=== PATIENT | female | born 1960 | race Caucasian/White ===

== ENCOUNTER 2016-10-03 09:39 | Observation (INO) | payer OTHER ==
[2016-10-03 10:43] LABS: ABSOLUTE BASOPHILS # (AUTO) 0.1 10^3/uL (0.0-0.2); ABSOLUTE EOSINOPHILS # (AUTO) 0.1 10^3/uL (0.0-0.6); ABSOLUTE LYMPHOCYTES (AUTO) 1.6 10^3/uL (0.5-4.7); ABSOLUTE MONOCYTES (AUTO) 0.4 10^3/uL (0.1-1.4); ABSOLUTE NEUT (AUTO) 3.9 10^3/uL (1.7-8.2); EOSINOPHILS % (AUTO) 1.4 % (0-6); HEMATOCRIT 46.5 % (36.0-47.0); HGB HCT DIFFERENCE 1.5; LYMPHOCYTES % (AUTO) 26.2 % (13-45); MEAN CORPUSCULAR HEMOGLOBIN 32.5 pg (27.0-33.4); MEAN CORPUSCULAR HGB CONC 34.5 g/dL (32.0-36.0); MEAN CORPUSCULAR VOLUME 94 fl (80-97); MONOCYTES % (AUTO) 6.5 % (3-13); PROTHROMBIN TIME 12.6 SEC (11.4-15.4); RED BLOOD COUNT 4.93 10^6/uL (3.72-5.28); RED CELL DISTRIBUTION WIDTH 12.7 % (11.5-14.0); SEGMENTED NEUTROPHILS % (AUTO) 64.9 % (42-78)
[2016-10-03 10:50] LABS: ALANINE AMINOTRANSFERASE 15 U/L (9-52); ALBUMIN 4.5 g/dL (3.5-5.0); ALKALINE PHOSPHATASE 66 U/L (38-126); ANION GAP 11 (5-19); ASPARTATE AMINO TRANSFERASE 22 U/L (14-36); BILIRUBIN,TOTAL 0.5 mg/dL (0.2-1.3); BLOOD UREA NITROGEN 11 mg/dL (7-20); CALCIUM 9.6 mg/dL (8.4-10.2); CARBON DIOXIDE 24 mmol/L (22-30); CHLORIDE 104 mmol/L (98-107); CREATINE KINASE 54 U/L (30-135); CREATININE RESULT 0.88 mg/dL (0.52-1.25); GLUCOSE 89 mg/dL (75-110); POTASSIUM 4.4 mmol/L (3.6-5.0); SODIUM 139.1 mmol/L (137-145)
[2016-10-03 11:04] LABS: CREATINE KINASE MB < 0.22 ng/mL (<4.55); TROPONIN I < 0.012 ng/mL
--- NOTE | 2016-10-03 11:06 | ER Document Report ---
ED Cardiac - General Chief Complaint: Chest Pressure Stated Complaint: CHEST PRESSURE, WEAKNAESS Time seen by provider: 11:05 Mode of Arrival: Ambulatory Information source: Patient Notes: The patient is a 56-year-old female with a history of breast cancer status post bilateral mastectomy (4 years ago) who presents to the emergency room with chest heaviness and shortness of breath. Patient states that she started to feel bad 2 days ago symptoms got worse yesterday. Patient denies any fever, chills, nausea vomiting. TRAVEL OUTSIDE OF THE [place] IN LAST 30 DAYS: No - HPI Patient complains to provider of: Chest tightness, Shortness of breath Use of: denies: Alcohol, Amphetamines, Bath salts, Caffeine, Cocaine, Decongestants, Other Was the onset of pain: Gradual Is the pain a: New problem Chest pain location: Substernal Quality of pain: Dull, Heaviness Chest pain radiation location: denies: Left jaw, Left arm, Left shoulder, Right jaw, Right arm, Right shoulder, Back, Neck, None Severity now: None Severity at worst: Mild Pain level currently: Denies Cardiac risk factors: Hypertension, Smoker, + Family history Positive cardiac history: No Associated symptoms: Shortness of breath Exacerbated by: Denies Relieved by: Nothing Similar symptoms previously: Yes Recently seen / treated by doctor: No - Related Data Allergies/Adverse Reactions: No Known Allergies Allergy (Verified 10/03/16 09:52) Home Medications: Current Home Medications Esomeprazole Magnesium [Nexium] 1 cap PO QAM 10/03/16 [History] Past Medical History - General Information source: Patient - Social History Smoking Status: Current Some Day Smoker Cigarette use (# per day): Yes - half pack per day Chew tobacco use (# tins/day): Yes Frequency of alcohol use: Occasional Drug Abuse: None Lives with: Family Family History: Reviewed & Not Pertinent Patient has suicidal ideation: No Patient has homicidal ideation: No - Past Medical History Cardiac Medical History: Denies: Hx Coronary Artery Disease Pulmonary Medical History: Reports: Hx COPD Neurological Medical History: Reports: None Endocrine Medical History: Reports: None Renal/ Medical History: Reports: None. Denies: Hx Peritoneal Dialysis Malignancy Medical History: Reports: Hx Breast Cancer - Successful surgery GI Medical History: Reports: Hx Gastroesophageal Reflux Disease Musculoskeltal Medical History: Reports None Skin Medical History: Reports None Psychiatric Medical History: Reports: Hx Post Traumatic Stress Disorder Past Surgical History: Reports: Hx Breast Surgery, Hx Cholecystectomy, Hx Gynecologic Surgery, Hx Hysterectomy, Hx Mastectomy - Bilateral, Hx Orthopedic Surgery, Hx Tonsillectomy - Immunizations Hx Diphtheria, Pertussis, Tetanus Vaccination: Yes Review of Systems - Review of Systems Constitutional: denies: Chills, Fever EENT: No symptoms reported Cardiovascular: See HPI Respiratory: See HPI Gastrointestinal: No symptoms reported Genitourinary: No symptoms reported Female Genitourinary: No symptoms reported Musculoskeletal: No symptoms reported Skin: No symptoms reported Hematologic/Lymphatic: No symptoms reported Neurological/Psychological: No symptoms reported Physical Exam - Vital signs Vitals: Temp Pulse Resp BP Pulse Ox 98.0 F 93 16 119/70 95 10/03/16 09:51 10/03/16 09:51 10/03/16 09:51 10/03/16 09:51 10/03/16 09:51 Notes: Physical exam: GENERAL: 56-year-old female, alert and oriented 3, no acute distress. HEAD: Atraumatic, normocephalic. EYES: Pupils equal round and reactive to light, extraocular movements intact, sclera anicteric, conjunctiva are normal. ENT: TMs normal, nares patent, oropharynx clear without exudates. Moist mucous membranes. NECK: Normal range of motion, supple without lymphadenopathy or JVD. LUNGS: Breath sounds clear to auscultation bilaterally and equal. No wheezes rales or rhonchi. HEART: Regular rate and rhythm without murmurs, rubs or gallops. ABDOMEN: Soft, normoactive bowel sounds. No tenderness to palpation. No guarding, no rebound. No masses appreciated. EXTREMITIES: Normal range of motion, no pitting or edema. No clubbing or cyanosis. NEUROLOGICAL: Cranial nerves II through XII grossly intact. Normal speech, normal gait. PSYCH: Normal mood, normal affect. SKIN: Warm, Dry, normal turgor, no rashes or lesions noted. Course - Vital Signs Vital signs: Temp Pulse Resp BP Pulse Ox 98.1 F 82 17 106/65 92 10/03/16 12:00 10/03/16 19:00 10/03/16 19:00 10/03/16 16:00 10/03/16 17:01 - Laboratory Result Diagrams: 10/03/16 10:18 10/03/16 10:18 Laboratory results interpreted by me: 10/03/16 10:18 Hgb 16.0 H - Diagnostic Test Radiology reviewed: Image reviewed, Reports reviewed - Chest x-ray shows no infiltrates. CTA shows no evidence of pulmonary emboli Discharge - Discharge Clinical Impression: copd Chest pain Qualifiers: Chest pain type: precordial pain Qualified Code(s): R07.2 - Precordial pain Condition: Stable Disposition: ADMITTED OBSERVATION Admitting Provider: Hospitalist - Dr Marcos Unit Admitted: Telemetry
[2016-10-03] MEDS ORDERED: IPRATROPIUM/ALBUTEROL 0.5-2.5 MG/3 ML AMPUL NEB ONE ×2 (12:08→14:29)
[2016-10-03] MEDS ORDERED: REGADENOSON INJ 0.4 MG/5 ML DISP.SYRIN IV ONE (12:29)
--- NOTE | 2016-10-03 12:55 | EKG REPORT ---
SEVERITY:- BORDERLINE ECG - SINUS TACHYCARDIA RIGHT AXIS DEVIATION CONSIDER ANTERIOR INFARCT : Confirmed by: William Cook 03-Oct-2016 12:55:41
[2016-10-03] MEDS ORDERED: MORPHINE SULFATE 10 MG/ML INJ IV ONE (14:25)
[2016-10-03] MEDS ORDERED: OXYCODONE-ACETAMINOPHEN 5-325 MG TABLET PO PRN (14:59)
[2016-10-03] MEDS ORDERED: ACETAMINOPHEN 325 MG TABLET PO PRN (14:59)
[2016-10-03] MEDS ORDERED: IPRATROPIUM/ALBUTEROL 0.5-2.5 MG/3 ML AMPUL NEB PRN (14:59)
[2016-10-03] MEDS ORDERED: ONDANSETRON HCL INJ/PF 4 MG/2 ML SDV IV PRN (14:59)
--- NOTE | 2016-10-03 15:15 | PDOC H&P ---
History of Present Illness Admission Date/PCP: 10/03/16 14:50 Patient complains of: Chest pressure History of Present Illness: EPHRAIM SAHNKAR is a 56 year old female presents to the emergency department with progressive complaint of chest pressure that started on Sunday as a "twinge" in the center of her chest, Sunday became constant and by yesterday became much more intense, each episode associated with shortness of breath and anxiety. None of this is relieved with sublingual nitroglycerin. She denies cough, phlegm, fever, chills, sore throat, reflux or food avoidance, heartburn, wheezing, orthopnea, PND, weight gain or loss. She had a similar episode in April 2016 but progressed to qi chest pain at that time. She was admitted overnight ruled out for acute cardiac ischemia and underwent a Cardiolite stress test that was interpreted as negative for acute ischemia. Evaluation in the emergency department is relatively unrevealing, her initial creatinines and was negative, EKG interpreted as normal without evidence of acute ischemia but due to her presentation we were asked to admit for chest pain evaluation. Past Medical History Cardiac Medical History: Denies: Coronary Artery Disease Pulmonary Medical History: Reports: Chronic Obstructive Pulmonary Disease (COPD) Malignancy Medical History: Reports: Breast Cancer - Successful surgery Psychiatric Medical History: Reports: Post Traumatic Stress Disorder Past Surgical History Past Surgical History: Reports: Cholecystectomy, Hysterectomy, Mastectomy - Bilateral, Orthopedic Surgery, Tonsillectomy Social History Smoking Status: Current Some Day Smoker Frequency of Alcohol Use: Rare Hx Recreational Drug Use: No Drugs: None - Advance Directive Resuscitation Status: Full Code Family History Family History: CAD - Interim brother at age 55, Malignancy - Multiple malignancies including uterine cancer, colon cancer, lung cancer, pancreatic cancer in first-degree relatives Parental Family History Reviewed: Yes Children Family History Reviewed: Yes Sibling(s) Family History Reviewed.: Yes Medication/Allergy Home Medications: Anastrozole 1 tab PO DAILY 05/01/16 Citalopram Hydrobromide [Citalopram HBr] 10 mg PO DAILY 05/01/16 Trazodone HCl 150 mg PO HSP PRN 05/01/16 Esomeprazole Magnesium [Nexium] 1 cap PO QAM 10/03/16 Allergies/Adverse Reactions: No Known Allergies Allergy (Verified 10/03/16 09:52) Review of Systems Constitutional: ABSENT: chills, fever(s), headache(s), weight gain, weight loss Eyes: ABSENT: visual disturbances Ears: ABSENT: hearing changes Cardiovascular: PRESENT: chest pain. ABSENT: dyspnea on exertion, edema, orthropnea, palpitations Respiratory: PRESENT: dyspnea. ABSENT: cough, hemoptysis Gastrointestinal: ABSENT: abdominal pain, constipation, diarrhea, hematemesis, hematochezia, nausea, vomiting Genitourinary: ABSENT: dysuria, hematuria Musculoskeletal: ABSENT: joint swelling Integumentary: ABSENT: rash, wounds Neurological: ABSENT: abnormal gait, abnormal speech, confusion, dizziness, focal weakness, syncope Psychiatric: ABSENT: anxiety, depression, homidical ideation, suicidal ideation Endocrine: ABSENT: cold intolerance, heat intolerance, polydipsia, polyuria Hematologic/Lymphatic: ABSENT: easy bleeding, easy bruising Physical Exam Vital Signs: Temp Pulse Resp BP Pulse Ox 98.1 F 93 20 108/60 93 10/03/16 12:00 10/03/16 09:51 10/03/16 13:01 10/03/16 13:00 10/03/16 13:01 PHYSICAL EXAM GENERAL: NAD; well developed, well nourished; no obese; alert and oriented to person, place, time, situation HEENT: normocephalic, atraumatic; EOMI, PERRLA, no conjunctival injection, no scleral icterus; oral mucosa moist, neck supple, no LAD, normal ROM RESPIRATORY: no accessory muscle use, no increased WOB, good air entry bilaterally; no wheezes, rales, rhonchi; no inspiratory crackles but bilateral coarse left greater than right CARDIO: no JVD; RRR; no systolic murmur; no tachycardia; no hepatojugular reflux VASCULAR: no carotid bruit; no abdominal bruit; no pallor; 2+ radial, DP pulse ; normal capillary refill GI: soft; nondistended; normal bowel sounds; no hepato spleno megaly; no rebound, rigidity, guarding; nontender NEURO: normal patella reflexes; normal sensation; normal motor function; no dysarthria MSK: 5/5 strength; normal ROM hips; ambulatory without assistance; no tenderness EXTREMITIES: no calf tender; no palpable cords in calf; no clubbing, cyanosis , pedal edema; PSYCH: normal affect, normal mood SKIN: warm; moist; no petechiae; no telengectasias; no jaundice; no rash Results Laboratory Results: Labs reviewed, CBC unremarkable including differential, INR normal, complete metabolic panel normal, cardiac enzymes normal EKG Comments: EKG shows a sinus rhythm borderline tachycardia with a ventricular rate of 98, corrected QT interval of 445, axis of 104 Impressions: Chest X-Ray 10/03/16 00:00 IMPRESSION: Obstructive lung disease. No acute findings Chest/Abdomen CTA 10/03/16 11:06 IMPRESSION: 1. No PE. 2. COPD. Status: Imported from PACS - Reports reviewed Assessment & Plan - Diagnosis (1) Atypical chest pain Is this a current diagnosis for this admission?: YesPlan: Admit the patient to a monitored bed. Trend serial cardiac enzymes through the night. Review the old record indicates she had a normal Cardiolite stress test in April 2016, therefore it is unlikely she has developed acute coronary blockage in the interval 6 months. We'll check echocardiogram given that her presentation and symptoms and given the extent of the COPD she was unaware of, to evaluate for pulmonary hypertension, right ventricular strain, etc. (2) COPD (chronic obstructive pulmonary disease) Qualifiers: COPD type: emphysema Emphysema type: other Qualified Code(s): J43.8 - Other emphysema Is this a current diagnosis for this admission?: YesPlan: CT scan shows fairly extensive bullous emphysema and air trapping far in excess of what the patient is aware of. She was counseled regarding tobacco cessation. She'll be given nebulizers, supplemental O2 as needed and further treatment as her clinical condition warrants. Currently there is no evidence of any bronchospasm on exam. (3) Breast cancer Qualifiers: Laterality: unspecified laterality Is this a current diagnosis for this admission?: NoPlan: Currently being managed as an outpatient. (4) Post traumatic stress disorder (PTSD) Is this a current diagnosis for this admission?: YesPlan: There may be an element of anxiety contributing to many of her symptoms. Continue her usual home regimen and monitor. (5) Tobacco dependence Is this a current diagnosis for this admission?: YesPlan: Tobacco cessation counseling. - Time Time Spent: 50 to 70 Minutes Medications reviewed and adjusted accordingly: Yes Anticipated discharge: Home Within: within 24 hours
--- NOTE | 2016-10-03 18:52 | XCELERA REPORT ---
[address] [address] Transthoracic Echocardiogram Report Name: EPHRAIM SHANKAR Age: 56 yrs Gender: Female : 1960 Patient Status: Inpatient Patient Location: \S\06\S\A Study Date: 10/03/2016 03:22 PM Height: 65 in Weight: 141 lb BSA: 1.7 m2 Procedure: A two-dimensional transthoracic echocardiogram with color flow and Doppler was performed. Study Quality: Technically suboptimal. Reason For Study: DYSPNEA / CHEST PRESSURE History: DYSPNEA / CHEST PRESSURE. Ordering Physician: BRIGHT JOLLEY Performed By: Lela Rendon Interpretation Summary The left ventricle is normal in size. There is normal left ventricular wall thickness. Left ventricular systolic function is normal. LV EF is 65% Doppler measurements suggest normal left ventricular diastolic function The left ventricular wall motion is normal. There is no thrombus. The right ventricle is grossly normal size. There is no evidence of mitral valve prolapse. There is no mitral valve stenosis. There is no aortic valve stenosis There is no LVOT obstruction. No aortic regurgitation is present. There is no tricuspid stenosis. No tricuspid regurgitation. unable to calculate RVSP due to insfficient TR jet. There is no pericardial effusion. MMode/2D Measurements \T\ Calculations RVDd: 2.5 cm LVIDd: 4.0 cm FS: 37.9 % Ao root diam: 2.7 cm IVSd: 0.71 cm LVIDs: 2.5 cm EDV(Teich): 68.9 ml LVPWd: 0.70 cmESV(Teich): 21.6 ml Ao root area: 5.6 cm2 EF(Teich): 68.6 % LA dimension: 2.6 cm LVOT diam: 1.8 cm LVOT area: 2.6 cm2 Doppler Measurements \T\ Calculations MV E max beata: MV P1/2t max beata: Ao V2 max: LV V1 max P.6 cm/sec 95.6 cm/sec 143.9 cm/sec 3.4 mmHg MV A max beata: MV P1/2t: 58.0 msec Ao max PG: LV V1 max: 90.2 cm/sec MVA(P1/2t): 3.8 cm2 8.3 mmHg 92.5 cm/sec MV E/A: 1.1 MV dec slope: LOLLY(V,D): 1.7 cm2 483.0 cm/sec2 PA V2 max: 77.5 cm/sec PA max P.4 mmHg Left Ventricle The left ventricle is normal in size. There is normal left ventricular wall thickness. Left ventricular systolic function is normal. LV EF is 65%. Doppler measurements suggest normal left ventricular diastolic function. The left ventricular wall motion is normal. There is no thrombus. There is no ventricular septal defect visualized. Right Ventricle The right ventricle is grossly normal size. Atria The right atrium is normal. The left atrial size is normal. The interatrial septum is intact with no evidence for an atrial septal defect. Mitral Valve There is no evidence of mitral valve prolapse. There is no vegetation seen on the mitral valve. There is no mitral valve stenosis. There is no mitral regurgitation noted. Aortic Valve There is no aortic valvular vegetation. There is no aortic valve stenosis. There is no LVOT obstruction. No aortic regurgitation is present. Tricuspid Valve There is no tricuspid stenosis. No tricuspid regurgitation. unable to calculate RVSP due to insfficient TR jet. Pulmonic Valve The pulmonic valve is not well visualized. Great Vessels The aortic root is not well visualized but is probably normal size. Effusions There is no pericardial effusion. : BRIGHT JOLLEY > Jeanette To
[2016-10-03] MEDS: FAMOTIDINE 20 MG TABLET PO SCH (22:23)
[2016-10-03] MEDS: TRAZODONE HCL 50 MG TABLET PO PRN (22:32)
[2016-10-04 04:44] LABS: HEMATOCRIT 43.4 % (36.0-47.0); HEMOGLOBIN 14.5 g/dL (12.0-15.5); HGB HCT DIFFERENCE 0.1; MEAN CORPUSCULAR HEMOGLOBIN 31.9 pg (27.0-33.4); MEAN CORPUSCULAR HGB CONC 33.4 g/dL (32.0-36.0); MEAN CORPUSCULAR VOLUME 95 fl (80-97); RED BLOOD COUNT 4.55 10^6/uL (3.72-5.28); RED CELL DISTRIBUTION WIDTH 12.8 % (11.5-14.0); WHITE BLOOD COUNT 6.7 10^3/uL (4.0-10.5)
[2016-10-04 05:01] LABS: ANION GAP 11 (5-19); BLOOD UREA NITROGEN 10 mg/dL (7-20); CALCIUM 9.4 mg/dL (8.4-10.2); CARBON DIOXIDE 22 mmol/L (22-30); CHLORIDE 107 mmol/L (98-107); CHOLESTEROL 169.13 mg/dL (0-200); CREATININE RESULT 0.81 mg/dL (0.52-1.25); Direct HDL 73 mg/dL (>40); GLUCOSE 92 mg/dL (75-110); POTASSIUM 4.2 mmol/L (3.6-5.0); SODIUM 140.2 mmol/L (137-145); TRIGLYCERIDES 94 mg/dL (<150)
[2016-10-04 05:12] LABS: DIRECT LDL 73 mg/dL (<100)
[2016-10-04] MEDS: ENOXAPARIN SODIUM INJ 40 MG/0.4 ML DISP.SYRIN SUBCUT SCH (07:19)
[2016-10-04] MEDS ORDERED: ENOXAPARIN SODIUM INJ 40 MG/0.4 ML DISP.SYRIN SUBCUT SCH (08:00)
[2016-10-04] MEDS: ANASTROZOLE 1 MG TABLET PO SCH (09:07)
[2016-10-04] MEDS: FAMOTIDINE 20 MG TABLET PO SCH ×2 (09:07→21:14)
[2016-10-04] MEDS ORDERED: MAG HYDROX/AL HYDROX/SIMETH SUSP 30 ML UDCUP ONE (12:04)
[2016-10-04] MEDS ORDERED: MORPHINE SULFATE 10 MG/ML INJ ONE (12:09)
[2016-10-04] MEDS ORDERED: MAG HYDROX/AL HYDROX/SIMETH SUSP 30 ML UDCUP PO ONE (12:30)
[2016-10-04] MEDS ORDERED: MORPHINE SULFATE 10 MG/ML INJ IV ONE (13:00)
--- NOTE | 2016-10-04 14:05 | PDOC PROGRESS REPORT ---
Subjective Progress Note for:: 10/04/16 Subjective:: Reason for visit: f/u chest pain Hospital course: EPHRAIM SHANKAR is a 56 year old female presents to the emergency department with progressive complaint of chest pressure that started on Sunday as a "twinge" in the center of her chest, Sunday became constant and by yesterday became much more intense, each episode associated with shortness of breath and anxiety. None of this is relieved with sublingual nitroglycerin. She denies cough, phlegm, fever, chills, sore throat, reflux or food avoidance, heartburn, wheezing, orthopnea, PND, weight gain or loss. She had a similar episode in April 2016 but progressed to qi chest pain at that time. She was admitted overnight ruled out for acute cardiac ischemia and underwent a Cardiolite stress test that was interpreted as negative for acute ischemia. Evaluation in the emergency department is relatively unrevealing, her initial creatinines and was negative, EKG interpreted as normal without evidence of acute ischemia but due to her presentation we were asked to admit for chest pain evaluation. she once again ruled out for acute ischemia with negative enzymes and no changes on EKG. her echo is also completely normal with good EF 65% and no wall motion abnormalities and no significant valvular abnormalities. unfortunately she did have another episode last night that awakended her from sleep with sharp, stabbing epigastric and lower left chest pain radiating into her left chest with asct'd SOA and dizziness, lasting for about 10 minutes and then spontaneously resolved. no alleviating or exacerbating factors and in fact states the chest pressure that brought her to the hospital makedly improved after this pain relented. ROS: as above, total 10 systems reviewed and otherwise negative. Physical Exam Vital Signs: Temp Pulse Resp BP Pulse Ox 97.8 F 65 20 96/56 L 96 10/04/16 11:33 10/04/16 11:33 10/04/16 11:33 10/04/16 11:33 10/04/16 11:33 Intake & Output 10/03/16 10/04/16 10/05/16 06:59 06:59 06:59 Intake Total 350 Balance 350 PHYSICAL EXAM GENERAL: NAD; well developed, well nourished; no obese; alert and oriented to person, place, time, situation HEENT: normocephalic, atraumatic; EOMI, PERRLA, no conjunctival injection, no scleral icterus; oral mucosa moist, neck supple, no LAD, normal ROM RESPIRATORY: no accessory muscle use, no increased WOB, good air entry bilaterally; no wheezes, rales, rhonchi; no inspiratory crackles but bilateral coarse sounds CARDIO: no JVD; RRR; no systolic murmur; no tachycardia; no hepatojugular reflux VASCULAR: 2+ radial, DP pulse; normal capillary refill GI: soft; nondistended; normal bowel sounds; no hepato spleno megaly; no rebound, rigidity, guarding; nontender even to deep palpation in the epigastrium NEURO: normal patella reflexes; normal sensation; normal motor function; no dysarthria MSK: 5/5 strength; normal ROM hips; ambulatory without assistance; no tenderness EXTREMITIES: no calf tender; no palpable cords in calf; no clubbing, cyanosis , pedal edema; PSYCH: normal affect, normal mood SKIN: warm; moist; no petechiae; no telengectasias; no jaundice; no rash Results Laboratory Results: 10/04/16 04:31 10/04/16 04:31 10/04/16 10/04/16 04:31 04:31 WBC 6.7 RBC 4.55 Hgb 14.5 Hct 43.4 MCV 95 MCH 31.9 MCHC 33.4 RDW 12.8 Plt Count 218 Sodium 140.2 Potassium 4.2 Chloride 107 Carbon Dioxide 22 Anion Gap 11 BUN 10 Creatinine 0.81 Est GFR ( Amer) > 60 Est GFR (Non-Af Amer) > 60 Glucose 92 Calcium 9.4 Triglycerides 94 Cholesterol 169.13 LDL Cholesterol Direct 73 VLDL Cholesterol 19.0 HDL Cholesterol 73 10/03/16 10/03/16 10/04/16 16:25 22:30 04:31 Troponin I < 0.012 < 0.012 < 0.012 labs reviewed, troponins very reassuring EKG Comments: echo report reviewed, see HPI Impressions: Chest X-Ray 10/03/16 00:00 IMPRESSION: Obstructive lung disease. No acute findings Chest/Abdomen CTA 10/03/16 11:06 IMPRESSION: 1. No PE. 2. COPD. Assessment & Plan - Diagnosis (1) Atypical chest pain Is this a current diagnosis for this admission?: YesPlan: still unclear, less likely cardiac. Review the old record indicates she had a normal Cardiolite stress test in April 2016, therefore it is unlikely she has developed acute coronary blockage in the interval 6 months. echocardiogram also unremarkable. case discussed with dr hsu, cardiology and he would like to get another cardiolyte in the morning but suggested ct abd/pelvis in the interim to r/o acute abdominal pathology. (2) COPD (chronic obstructive pulmonary disease) Qualifiers: COPD type: emphysema Emphysema type: other Qualified Code(s): J43.8 - Other emphysema Is this a current diagnosis for this admission?: YesPlan: CT scan shows fairly extensive bullous emphysema and air trapping far in excess of what the patient is aware of, in fact she didn't know she had COPD. She was counseled regarding tobacco cessation. She'll be given nebulizers, supplemental O2 as needed and further treatment as her clinical condition warrants. Currently there is no evidence of any bronchospasm on exam. (3) Tobacco dependence Is this a current diagnosis for this admission?: YesPlan: Tobacco cessation counseling. (4) Breast cancer Qualifiers: Laterality: unspecified laterality Is this a current diagnosis for this admission?: No (5) Post traumatic stress disorder (PTSD) Is this a current diagnosis for this admission?: Yes - Time Time Spent with patient: 15-24 minutes Medications reviewed and adjusted accordingly: Yes Anticipated discharge: Home Within: within 24 hours
[2016-10-04] MEDS: TRAZODONE HCL 50 MG TABLET PO PRN (21:14)
--- NOTE | 2016-10-04 21:38 | EKG REPORT ---
SEVERITY:- NORMAL ECG - SINUS RHYTHM : Confirmed by: William Cook 04-Oct-2016 21:37:41
--- NOTE | 2016-10-04 21:38 | EKG REPORT ---
SEVERITY:- NORMAL ECG - SINUS RHYTHM : Confirmed by: William Cook 04-Oct-2016 21:37:33
[2016-10-04] MEDS ORDERED: CITALOPRAM HYDROBROMIDE 20 MG TABLET PO SCH (22:00)
--- NOTE | 2016-10-05 04:33 | CONSULTATION REPORT E ---
Consultation Report NAME: EPHRAIM SHANKAR : 1960 AGE: 56Y DATE: 10/04/2016 416 A TO: JAREK REDMOND M.D. FROM: BRIGHT MARCOS M.D. Requesting Physician Note that the patient is a poor historian. REASON FOR CONSULTATION: Chest pain/pressure. HISTORY OF PRESENT ILLNESS: The patient is a 56-year-old female who is a very bad historian. She states that off and on since Sunday, she has been having some front of the chest pressure lasting for about 10 minutes. Although she told the attending physician that it is not helped with nitroglycerin. She said some of the episodes have been helped with nitroglycerin sublingually and also with morphine. Also she states that some of these chest pressures increase when she walks or exerts herself. There is no cough or sputum production. There is no wheezing. The patient has a history of COPD and she continues to smoke. There is no PND, orthopnea, or leg edema. There are no palpitations or syncope. There are no TIA or CVA symptoms. The patient had serial cardiac enzymes, which were negative and also her EKG does not show any acute changes. Last night again, she started having chest pressure, which finally subsided by itself. She continues to have this chest pain. She also states that she has another kind of pain, which is to the right of the epigastrium and chest near the lower right rib cage where it is a sharp pain lasting for about 10 minutes at a time and very severe. After taking history and examining the patient, the patient had this pain in the right side of the epigastrium under the right rib cage and when I palpated it, there was no rebound, guarding, rigidity and it did not bring out any tenderness. PAST MEDICAL HISTORY: She denies any history of coronary artery disease. She has had chest pains and in April of 2016, she had negative stress test. She states that she continues to have these symptoms off and on. She also has a history of posttraumatic stress disorder and depression. She states although she is on Nexium, she has no history of GERD. There is no history of diabetes mellitus or thyroid disease. There is no history of TIA or CVA. There is no history of hypertension. There is no history of asthma. There is a history of COPD. The patient is a smoker. The patient has no history of sleep apnea. There is no history of pleuritic chest pain. There is no history of hemoptysis. She has a history of bilateral breast cancer and mastectomies with bilateral breast implants. She states the cancer is well controlled and there is no spread of cancer. PAST SURGICAL HISTORY: Positive for 1. Cholecystectomy. 2. Hysterectomy. 3. Bilateral mastectomy with breast implants. 4. She has also had orthopedic surgery. 5. Tonsillectomy. SOCIAL HISTORY: The patient is a smoker. There is no history of EtOH abuse. FAMILY HISTORY: Positive for hypertension *------* ALLERGIES: She has no known allergies. DISPOSITION: The patient states that she is a FULL CODE. Her daughters are the surrogate healthcare decision makers. MEDICATIONS: Include 1. Acetaminophen 650 mg p.o. q.4h. p.r.n. 2. She is on Arimidex 1 mg p.o. daily. 3. She is on Citalopram 10 mg p.o. at bedtime. 4. She is on Lovenox 40 mg subcutaneously q.a.m. 5. She is on famotidine 20 mg p.o. q.12h. 6. She is on ipratropium/albuterol 3 mL nebulizer treatment q.6h. p.r.n. 7. She is on Zofran 4 mg IV q.4h. p.r.n. 8. She is on oxycodone/acetaminophen 1 tablet p.o. q.6h. p.r.n. 9. She is on Desyrel 150 mg p.o. at bedtime p.r.n. REVIEW OF SYSTEMS: CONSTITUTIONAL: Denies any fever, chills, or rigors. Denies any fatigue or generalized weakness. HEAD: Denies any history of headache or head injury. EYES: No history of amblyopia or diplopia. No history of amaurosis fugax. EARS: No history of hearing loss. No history of tinnitus. No history of vertigo. NOSE: No history of nosebleeds. No history of nasal polyps. No history of hay fever. MOUTH: No history of altered taste sensation. No history of ulcers in the mouth. THROAT: No history of odynophagia or dysphagia. No history of recurrent sore throats. SKIN: No history of pruritus. No history of psoriasis. No history of skin cancer. There is no pruritus. NECK: No history oaf enlarged neck lymph nodes. No neck pain. No symptoms of C-spine arthritis. LUNGS: History of COPD present. The patient is a smoker. No recent cough or sputum production. No wheezing. No history of sleep apnea. No history of pulmonary embolism. No history of pleuritic chest pain. No history of hemoptysis. GASTROINTESTINAL: Although, she is on Nexium, she denies any symptoms of GERD. There is no fatty food intolerance. Epigastric pain as mentioned earlier just to the right under the right rib cage, but exam is very benign when she has the pain. An EKG today during the pain shows no changes. There is no diarrhea. There is no fatty food intolerance. There are no altered bowel movements. There is no GI bleed. There is no hepatitis. ENDOCRINE: No history of diabetes mellitus or thyroid disease. No history of polydipsia or polyuria. No history of heat or cold intolerance. No history of excessive sweating. No history of hirsutism. RENAL: No history of chronic kidney disease. No symptoms of UTI. No history of hematuria, pyuria, or dysuria. MUSCULOSKELETAL: Denies any arthritis or collagen vascular disease. CENTRAL NERVOUS SYSTEM: No history of TIA or CVA. No history of seizures, headaches, or migraines. No history of sleep apnea. No history of altered gait. PSYCHIATRIC: There is a history of PTSD, anxiety and depression. She denies suicidal ideation. VASCULAR: No history of DVT. No history of calf or buttock claudication. HEMATOLOGICAL: No history of anemia. No history of bleeding diathesis. No history of clotting disorders. PHYSICAL EXAMINATION: GENERAL: The patient is well built and well nourished, at present in no acute distress, but did have some distress after my examination. She complained of severe pain in the epigastrium under the right rib cage, but the exam was benign. VITAL SIGNS: She is afebrile with the temperature of 97.8 degrees Fahrenheit, pulse is 65 beats per minute, blood pressure is 96/56, respirations are 20 per minute, O2 saturations are 96% on room air. HEAD: Atraumatic, normocephalic. EYES: Pupils are equal, round, regular, reactive to light and accommodation. Extraocular movements are normal. There is no conjunctival pallor. There is no scleral icterus. EARS: Tympanic membranes are intact. External auditory canals are clear. NOSE: There is no deviated nasal septum. There is no inflammation of the nasal mucous membrane. MOUTH: Mucous membranes of the mouth are moist. Tongue is moist. There are no ulcers. There is no bleeding from the gums. THROAT: There is no redness of the oropharynx. There is no exudate. SKIN: There is no skin rash. There is no petechia or ecchymosis. There are no skin lesions. NECK: Supple. There is no JVD. Carotids are equal. There is no bruit. There is no lymphadenopathy. There is no goiter. Trachea is central. LUNGS: Showed diminished air entry, prolonged expiration without any rhonchi, rales, or wheezing. HEART: S1, S2 is heard. There is no S3 gallop. There is no S4 gallop. There is a systolic murmur in the left sternal border and the apex. There is no rub. ABDOMEN: Soft, nontender. There is no hepatosplenomegaly. Bowel sounds are well heard. There are no tender areas or masses. EXTREMITIES: Femorals are diminished. There are no femoral bruits. Leg pulses are diminished. There is no pedal edema. There is no DVT or cellulitis. There is no calf tenderness. There is no cyanosis or clubbing. CENTRAL NERVOUS SYSTEM: The patient is conscious, awake, alert, oriented x3 with no focal deficits. PSYCHIATRIC: The patient's judgment and insight seem to be intact. Her affect at present seems to be normal. DIAGNOSTIC DATA: The patient's chest x-ray shows centrilobular emphysema. There are bilateral breast implants, but no acute findings. The patient's EKG shows sinus tachycardia, right axis deviation, poor R-wave progression mostly likely lead placement. No evidence of OH. The patient's chest x-ray shows no evidence of pulmonary emboli. There is centrilobular and paraseptal emphysema. No dissection. No pulmonary embolism. No infiltrates. The patient's EKG done shows sinus rhythm within normal limits. The patient's cardiac enzymes have been negative x4. The patient's triglycerides are 94. The patient's LDL cholesterol is 73, HDL cholesterol is 73. The patient's sodium is 140.2, potassium 4.2, chloride 107, CO2 is 22. The patient's BUN is 10, creatinine is 0.81, GFR is greater than 60, her glucose is 92, her hemoglobin A1c is 5.4, and her calcium is 9.4. The patient's white count is 6700, hemoglobin A1c is 14.5, hematocrit is 43.4, platelet count is 218,000. IMPRESSION: 1. CHEST PAIN? CAD. The patient is not a good historian, cannot exclude functional chest pain. 2. CAD. Risk factors are patient's age, tobacco abuse, family history of coronary artery disease. 3. COPD. 4. PTSD. 5. DEPRESSION. 6. EPIGASTRIC PAIN? ETIOLOGY. 7. TOBACCO ABUSE. RECOMMENDATIONS: The patient's blood pressure is low, hence cannot put her on a lot of medication. We will place the patient on aspirin. Continue current medication, sublingual nitroglycerin p.r.n. and morphine 2 mg IV q.6h. p.r.n., pain. In view of the patient's not being a reliable historian, we will schedule the patient for an IV Lexiscan/Cardiolite stress test in the a.m. This has been discussed with the patient. Note, in view of the patient's abdominal pain, she had a CT of the abdomen, which showed mild prominence of the intra and extrahepatic veins with evidence of cholecystectomy with no other acute findings. We will follow with you. TIME SPENT: Note: 45 minutes spent on this patient, more than 50% of the time spent on direct patient care and also reviewing the patient's medications and also discussions of the EKGs and lab results with the patient. More than 50% of the time was spent in direct patient care. Also the procedure of stress test was discussed with the patient including the small risk of having an OH during the procedure and the false positives and false negatives of stress testing have been discussed. Discussed with Dr. Marcos, the attending physician of the case. The patient wants to have the stress test prior to going home. We will schedule the patient for IV Lexiscan/Cardiolite stress test in the a.m. Thanking you. DICTATING PHYSICIAN: JAREK REDMOND M.D. [id number] IGLESIA#: [id number] ID: [id number] JOB#: [id number] ACCT: [id number] cc:JAREK REDMOND M.D. >
[2016-10-05] MEDS: ENOXAPARIN SODIUM INJ 40 MG/0.4 ML DISP.SYRIN SUBCUT SCH (07:06)
[2016-10-05] MEDS: FAMOTIDINE 20 MG TABLET PO SCH (10:51)
[2016-10-05] MEDS: ANASTROZOLE 1 MG TABLET PO SCH (10:51)
--- NOTE | 2016-10-05 14:28 | DRAGON STRESS TEST REPORT ---
Intravenous Lexiscan Cardiolite stress test using single photon emmision computerized tomography. Date of procedure: 10/05/2016 Ordering Provider: Dr. Jeanette To. Indication: Chest pain. Coronary risk factors: Age, tobacco abuse, and family history of coronary artery disease. Resting EKG: Sinus Rhythm. Within Normal Limits. The patient had no chest pain or discomfort, and there were no arrhythmias seen. Stress EKG:[ No changes of ischemia. Reason for termination: Protocol. Conclusions: Normal EKG and hemodynamic response to IV Lexiscan. Nuclear data: At rest the patient was given 10.22 millicuries of technetium 99m sestamibi injected intravenously. As per protocol rest non gated SPECT images were obtained. Subsequently the patient was given intravenous Lexiscan at a dose of 0.4 mg in 5 mL intravenously, followed by flush with normal saline. Subsequently the stress dose of 32.8 millicuries of technetium 99m sestamibi was injected intravenously. As per protocol stress gated images were obtained. Nuclear interpretation: Review of images showed that all segments of the myocardium had normal perfusion at rest, and normal perfusion post stress with IV Lexiscan. All segments of the myocardium had normal motion, contraction, and thickening by gated study. T. I D. ratio was normal at 1.01. Computer read rest, and stress left ventricular ejection fraction were 56 %, and 51 %, respectively. Visually both the stress and rest ejection fractions were normal, and greater than 60 %. Conclusion: 1. There is no scintigraphic evidence of Lexiscan induced myocardial ischemia. 2. There is no scintigraphic evidence of myocardial infarction/scar. Recommendations: Aggressive risk factor modification, and treating the underlying co- morbidities. Tobacco cessation counseling. [facility]
[2016-10-05 14:54] VITALS: BP 106/64
--- NOTE | 2016-10-05 15:08 | PDOC DISCHARGE SUMMARY ---
General - Admit/Disc Date/PCP Admission Date/Primary Care Provider: 10/03/16 14:59 Discharge Date: 10/05/16 - Discharge Diagnosis (1) Atypical chest pain Is this a current diagnosis for this admission?: YesSummary: still unclear, less likely cardiac. Review the old record indicates she had a normal Cardiolite stress test in April 2016, therefore it is unlikely she has developed acute coronary blockage in the interval 6 months. echocardiogram also unremarkable. case discussed with dr hsu, cardiology and he performed another cardiolyte this morning that is also negative for ischemia and suggested ct abd/pelvis performed which r/o'd acute abdominal pathology. I strongly suspect either a GI source or psychiatric one related to her anxiety. I suggest she undergo outpt endoscopy if she has recurrent or escalating symptoms. (2) COPD (chronic obstructive pulmonary disease) Is this a current diagnosis for this admission?: YesSummary: CT scan shows fairly extensive bullous emphysema and air trapping far in excess of what the patient is aware of, in fact she didn't know she had COPD. She was counseled regarding tobacco cessation. NO evidence for acute exacerbation during this admission. (3) Tobacco dependence Is this a current diagnosis for this admission?: Yes (4) Breast cancer Is this a current diagnosis for this admission?: No (5) Post traumatic stress disorder (PTSD) Is this a current diagnosis for this admission?: Yes - Additional Information Resuscitation Status: Full Code Discharge Diet: As Tolerated Discharge Activity: Activity As Tolerated Home Medications: Anastrozole 1 tab PO DAILY 05/01/16 Citalopram Hydrobromide [Citalopram HBr] 10 mg PO DAILY 05/01/16 Trazodone HCl 150 mg PO HSP PRN 05/01/16 Esomeprazole Magnesium [Nexium] 1 cap PO QAM 10/03/16 Acetaminophen [Tylenol 325 mg Tablet] 650 mg PO Q4HP PRN tablet 10/05/16 History of Present Illness Patient complains of: left sided chset and epigastric pain History of Present Illness: presents to the emergency department with progressive complaint of chest pressure that started on Sunday as a "twinge" in the center of her chest, Sunday became constant and by yesterday became much more intense, each episode associated with shortness of breath and anxiety. None of this is relieved with sublingual nitroglycerin. She denies cough, phlegm, fever, chills, sore throat , reflux or food avoidance, heartburn, wheezing, orthopnea, PND, weight gain or loss. She had a similar episode in April 2016 but progressed to qi chest pain at that time. She was admitted overnight ruled out for acute cardiac ischemia and underwent a Cardiolite stress test that was interpreted as negative for acute ischemia. Hospital Course Hospital Course: Evaluation in the emergency department is relatively unrevealing, her initial creatinines and was negative, EKG interpreted as normal without evidence of acute ischemia but due to her presentation we were asked to admit for chest pain evaluation. she once again ruled out for acute ischemia with negative enzymes and no changes on EKG. her echo is also completely normal with good EF 65% and no wall motion abnormalities and no significant valvular abnormalities. unfortunately she did have another episode last night that awakended her from sleep with sharp, stabbing epigastric and lower left chest pain radiating into her left chest with asct'd SOA and dizziness, lasting for about 10 minutes and then spontaneously resolved. no alleviating or exacerbating factors and in fact states the chest pressure that brought her to the hospital makedly improved after this pain relented. cardiology consulted and repeat stress test performed that was also negative. ct a/p did not show any pathologic process to explain her pain. it is thought related to anxiety and/or GI symptoms like GERD. she was encouraged to f/u wtih her PCP in one week, keep a diary of her symptoms as they occur and return to the ED for escalating symptoms. she is stable for d/c home at this time. she expresses no concerns to me about going home today. Physical Exam Vital Signs: Temp Pulse Resp BP Pulse Ox 97.5 F 68 18 106/64 96 10/05/16 14:49 10/05/16 14:49 10/05/16 14:49 10/05/16 14:49 10/05/16 14:49 Intake & Output 10/04/16 10/05/16 10/06/16 06:59 06:59 06:59 Intake Total 350 1360 230 Balance 350 1360 230 PHYSICAL EXAM GENERAL: NAD; well developed, well nourished; no obese; alert and oriented to person, place, time, situation HEENT: normocephalic, atraumatic; EOMI, PERRLA, no conjunctival injection, no scleral icterus; oral mucosa moist, neck supple, no LAD, normal ROM RESPIRATORY: no accessory muscle use, no increased WOB, good air entry bilaterally; no wheezes, rales, rhonchi; no inspiratory crackles but bilateral coarse sounds CARDIO: no JVD; RRR; no systolic murmur; no tachycardia; no hepatojugular reflux VASCULAR: 2+ radial, DP pulse; normal capillary refill GI: soft; nondistended; normal bowel sounds; no hepato spleno megaly; no rebound, rigidity, guarding; nontender even to deep palpation in the epigastrium NEURO: normal patella reflexes; normal sensation; normal motor function; no dysarthria MSK: 5/5 strength; normal ROM hips; ambulatory without assistance; no tenderness EXTREMITIES: no calf tender; no palpable cords in calf; no clubbing, cyanosis , pedal edema; PSYCH: normal affect, normal mood SKIN: warm; moist; no petechiae; no telengectasias; no jaundice; no rash Results Laboratory Results: 10/04/16 04:31 10/04/16 04:31 10/03/16 10/03/16 10/04/16 16:25 22:30 04:31 Troponin I < 0.012 < 0.012 < 0.012 Impressions: Chest X-Ray 10/03/16 00:00 IMPRESSION: Obstructive lung disease. No acute findings Chest/Abdomen CTA 10/03/16 11:06 IMPRESSION: 1. No PE. 2. COPD. Abdomen/Pelvis CT 10/04/16 00:00 IMPRESSION: Post cholecystectomy. Mild prominence of the intra and extrahepatic biliary ductal system without calcified or radiopaque gallstones. Qualifiers PATEINT BEING DISCHARGED WITH ANY OF THE FOLLOWING DIAGNOSIS?: No VTE patient discharged on overlapping Therapy?: No Reason(s) for not prescribing Overlap Therapy:: Not indicated
--- NOTE | 2016-10-05 22:48 | PROGRESS NOTE E ---
Progress Note NAME: EPHRAIM SHANKAR : 1960 AGE: 56Y DATE: 10/05/2016 ROOM: 416 SUBJECTIVE: The patient has not had any further chest pain or discomfort, no abdominal pain. There is no shortness of breath. There is no wheezing, cough or sputum production. There is no PND or orthopnea. There is no leg edema. There are no palpations. There are no TIA or CVA symptoms. The patient did have an IV Lexiscan Cardiolite stress test done today; see results below. OBJECTIVE: GENERAL: The patient is well built and well-nourished in no acute distress. VITAL SIGNS: She is afebrile with a temperature of 97.3 degrees Fahrenheit. Pulse is 68 beats per minute, blood pressure 106/64, respirations 18 per minute. Oxygen saturations are 96% on room air. HEENT: Head is atraumatic, normocephalic. Eyes: Pupils are equal, round, regular and reactive to light and accommodation. Extraocular movements are normal. There is no conjunctival pallor. There is no scleral icterus. ENT is negative. NECK: Supple. There is no JVD. Carotids are equal. There is no bruit. There is no goiter. There is no lymphadenopathy. Trachea is central. LUNGS: Show diminished air entry and prolonged expiration without any rhonchi, rales or wheezing. On percussion there is hyperresonance. HEART: S1 and S2 are heard. There is no S3 gallop. There is no S4 gallop. There is a systolic murmur in the left sternal border and the apex. There is no rub. ABDOMEN: Soft, nontender. There is no hepatosplenomegaly. Bowel sounds are well heard. There are no tender area or masses. EXTREMITIES: Femorals are diminished. There are no femoral bruits. Leg pulses are diminished. There is no DVT or cellulitis. There is no pedal edema. There is no cyanosis or clubbing. CENTRAL NERVOUS SYSTEM: The patient is conscious, awake, alert and oriented x3 with no focal deficits. PSYCHIATRIC: The patient's judgment and insight are intact. At present the patient does not appear to be anxious or agitated or depressed. Her affect is normal. DIAGNOSTIC DATA: The patient underwent an IV Lexiscan Cardiolite stress test which showed no reversible ischemia and no GA or scar. IMPRESSION: 1. Chest pain, noncardiac with negative Lexiscan Cardiolite stress test. 2. COPD. 3. Posttraumatic stress disorder. 4. Depression. 5. Epigastric pain, question etiology, seems to be functional. 6. Tobacco abuse. Tobacco cessation counseling was given to the patient for 4 minutes. RECOMMENDATIONS: Note that the patient's lipid levels were great. The stress test results were discussed with the patient and also with the attending physician taking care of the patient. The patient will be discharged today. Will sign out of the case. TIME SPENT: Thirty minutes spent on this patient with more than 50% of the time spent on direct patient care and also discussion of the stress test with the patient. *------*. DICTATING PHYSICIAN: JAREK REDMOND M.D. [id number] PHY#: [id number] ID: [id number] JOB#: [id number] ACCT: [id number] cc: >
== END 2016-10-05 15:36 | disposition home or self-care (01) ==
LOC: ER 09:39 → UNDOADMOB 14:50 → EH 14:50 → 4W 22:05
PROVIDERS: ADMIT Internal Medicine; ATTEND Internal Medicine
DX: R07.89 Other chest pain (principal); J44.9 Chronic obstructive pulmonary disease, unspecified; F17.200 Nicotine dependence, unspecified, uncomplicated; F43.10 Post-traumatic stress disorder, unspecified; R10.13 Epigastric pain; F32.9 Major depressive disorder, single episode, unspecified; C50.919 Malignant neoplasm of unspecified site of unspecified female breast
CPT/HCPCS: 93005 ×2; 94640 ×2; 99285; 96374; 36415 ×2; 82553; 82550; 85025; 85027; 85610; 80048; 80053; 84484 ×2; 83036; 80061; 93306; 93017; 71010; 78452; 71275; 74177; 93010 ×2; G0378 ×4; A9500; J2785; J2270 ×2; J1650 ×2; J3490 ×5; J2405; J7620; Q9969

== ENCOUNTER 2016-12-22 13:21 | Emergency (ER) | payer OTHER ==
--- NOTE | 2016-12-22 13:56 | ER Document Report ---
HPI - HPI Patient complains to provider of: Right rib and right hand pain Onset: Just prior to arrival Onset/Duration: Sudden Quality of pain: Throbbing Severity: Severe Pain Level: 5 Context: Patient was walking dog and he jerked the leash, causing patient to fall and hit her right ribs on garden border. She also complains of right ring finger pain. Associated Symptoms: None Exacerbated by: Movement, Coughing, Deep breathing Relieved by: Denies Similar symptoms previously: No Recently seen / treated by doctor: No - ROS ROS below otherwise negative: Yes Systems Reviewed and Negative: Yes All other systems reviewed and negative - CONSTITUTIONAL Constitutional: DENIES: Fever - EENT EENT: DENIES: Congestion - NEURO Neurology: DENIES: Headache - CARDIOVASCULAR Cardiovascular: REPORTS: Chest pain - right ribs - RESPIRATORY Respiratory: DENIES: Trouble Breathing - hurts to deep breath, Coughing - GASTROINTESTINAL Gastrointestinal: DENIES: Abdominal Pain - URINARY Urinary: DENIES: Dysuria - MUSCULOSKELETAL Musculoskeletal: REPORTS: Extremity pain - right finger - DERM Skin Color: Ecchymosis - right lateral chest wall Skin Problems: Abrasion - superficial right chest Past Medical History - General Information source: Patient - Social History Smoking Status: Current Every Day Smoker Cigarette use (# per day): Yes Frequency of alcohol use: Occasional Drug Abuse: None Lives with: Family Family History: Reviewed & Not Pertinent Patient has suicidal ideation: No Patient has homicidal ideation: No - Past Medical History Cardiac Medical History: Reports: Hx Hypertension Pulmonary Medical History: Reports: Hx COPD Malignancy Medical History: Reports: Hx Breast Cancer - Successful surgery GI Medical History: Reports: Hx Gastroesophageal Reflux Disease Psychiatric Medical History: Reports: Hx Depression, Hx Post Traumatic Stress Disorder Past Surgical History: Reports: Hx Breast Surgery, Hx Cholecystectomy, Hx Gynecologic Surgery, Hx Hysterectomy, Hx Mastectomy - Bilateral, Hx Orthopedic Surgery, Hx Tonsillectomy - Immunizations Hx Diphtheria, Pertussis, Tetanus Vaccination: Yes Vertical Provider Document - CONSTITUTIONAL Agree With Documented VS: Yes Exam Limitations: No Limitations General Appearance: WD/WN, Mild Distress - INFECTION CONTROL TRAVEL OUTSIDE OF THE [place] IN LAST 30 DAYS: No - HEENT HEENT: Atraumatic, Normocephalic - NECK Neck: Normal Inspection, Supple - RESPIRATORY Respiratory: No Respiratory Distress, Wheezing - Patient states she has COPD and wheezes most of the time., Other - Right lateral chest under axilla tender to touch O2 Sat by Pulse Oximetry: 93 - CARDIOVASCULAR Cardiovascular: Regular Rate, Regular Rhythm - GI/ABDOMEN Gastrointestinal: Abdomen Soft - MUSCULOSKELETAL/EXTREMETIES Musculoskeletal/Extremeties: negative: Eccymosis Notes: Pain with lifting right shoulder due to contusion under right axilla - NEURO Level of Consciousness: Awake, Alert, Appropriate - DERM Integumentary: Warm, Dry, Rash - Superficial abrasions noted under right axilla across the front chest wall. Course - Re-evaluation Re-evalutation: 12/22/16 15:16 X-rays negative for fracture and discussed with patient - Vital Signs Vital signs: Temp Pulse Resp BP Pulse Ox 98 F 88 18 145/68 H 93 12/22/16 13:30 12/22/16 13:30 12/22/16 13:30 12/22/16 13:30 12/22/16 13:30 Discharge - Discharge Clinical Impression: Abrasion Chest wall contusion Qualifiers: Encounter type: initial encounter Laterality: right Qualified Code(s): S20.211A - Contusion of right front wall of thorax, initial encounter Finger sprain Qualifiers: Encounter type: initial encounter Finger: ring finger Sprain of finger site: unspecified site Laterality: right Qualified Code(s): S63.614A - Unspecified sprain of right ring finger, initial encounter Condition: Good Disposition: HOME, SELF-CARE Additional Instructions: OTC ibuprofen for pain take hydrocodone that you have at home ice packs follow up with your doctor next week for recheck return as needed
--- NOTE | 2016-12-22 14:58 | RADIOLOGY REPORT (SQ) ---
EXAM DESCRIPTION: RIBS RIGHT W/PA CHEST COMPLETED DATE/TIME: 12/22/2016 2:30 pm REASON FOR STUDY: injury COMPARISON: None. TECHNIQUE: Frontal view of the chest and additional views of the right ribs acquired. NUMBER OF VIEWS: Three views LIMITATIONS: None. FINDINGS: FRONTAL CXR: No pneumothorax. No pleural effusion. No atelectasis or infiltrates. RIBS: No displaced rib fractures. No lytic or blastic bony lesions. OTHER: Multiple surgical clips are identified in the soft tissues in the right lower hemithorax. Latasha ast implants are identified. IMPRESSION: NO PNEUMOTHORAX. NO DISPLACED RIB FRACTURES. COMMENT: SITE OF TRAUMA/COMPLAINT MARKED/STAMP COMPLETED: No TECHNICAL DOCUMENTATION: JOB ID: [id number] [employer]- All Rights Reserved
--- NOTE | 2016-12-22 15:10 | RADIOLOGY REPORT (SQ) ---
EXAM DESCRIPTION: HAND RIGHT 3 VIEWS COMPLETED DATE/TIME: 12/22/2016 2:30 pm REASON FOR STUDY: injury COMPARISON: None. EXAM PARAMETERS: NUMBER OF VIEWS: Three views. TECHNIQUE: AP, lateral and oblique radiographic images acquired of the right hand. LIMITATIONS: None. FINDINGS: MINERALIZATION: Normal. BONES: No acute fracture or dislocation. No worrisome bone lesions. JOINTS: No effusions. SOFT TISSUES: No soft tissue swelling. No foreign body. OTHER: No other significant finding. IMPRESSION: NEGATIVE STUDY OF THE RIGHT HAND. NO RADIOGRAPHIC EVIDENCE OF ACUTE INJURY. TECHNICAL DOCUMENTATION: JOB ID: [id number] [employer]- All Rights Reserved
[2016-12-22 15:21] VITALS: BP 113/63
== END 2016-12-22 15:21 | disposition home or self-care (01) ==
LOC: ER 13:21
DX: S20.211A Contusion of right front wall of thorax, initial encounter (principal); S20.311A Abrasion of right front wall of thorax, initial encounter; R07.81 Pleurodynia; M79.641 Pain in right hand; W01.0XXA Fall on same level from slipping, tripping and stumbling without subsequent striking against object, initial encounter; Y93.K1 Activity, walking an animal; F17.210 Nicotine dependence, cigarettes, uncomplicated
CPT/HCPCS: 99284

== ENCOUNTER → 2017-11-06 | Outpatient (CLI) | payer OTHER ==
--- NOTE | 2017-11-06 17:15 | WOMENS IMAGING REPORT ---
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 Selected color Doppler images recorded. LIMITATIONS: None. FINDINGS: Patient indicates a palpable abnormality in the right breast 11 to 12 o'clock position, in fraclavicular region. Palpable abnormality is along the superior edge of a right breast implant with skin sparing mastectomy. Ultrasound of this area demonstrates a 6 mm oil cyst, 3 mm oil cyst and 2 mm oil cysts surrounded by slight increased echogenicity of the subcutaneous fat. This area most likely represents fat necrosis . Tumor recurrence could not entirely be excluded. Ultrasound-guided core biopsy of this area with post biopsy clip placement is recommended. Ultrasound of the right axilla is unremarkable. No worrisome nodules. No enlarged lymph nodes. Findings today were discussed with the patient at the time of service. IMPRESSION: Probable fat necrosis and oil cyst formation at the area of palpable abnormality right b reast 11 to 12 o'clock position. Malignancy could not entirely be excluded. Ultrasound-guided core biopsy and post biopsy clip placement is recommended. BIRAD: 4 Suspicious. Biopsy should be considered. RECOMMENDATION: RECOMMENDED FOLLOW-UP: Ultrasound-guided core biopsy and post biopsy clip placement of the area of concern identified at ultrasound. COMMENT: These results were discussed with Dr. Silveira [employer] (ACR) has developed recommendations for screening MRI of the breast s in certain patient populations, to be used in conjunction with mammography. Breast MRI surveillanc e may be appropriate for women with more than 20% lifetime risk of developing breast cancer as deter mined by genetic testing, significant family history of the disease, or history of mantle radiation f or Hodgkins Disease. ACR Practice Guidelines 2007. TECHNICAL DOCUMENTATION: JOB ID: [id number] [employer]- All Rights Reserved Reading location - IP/workstation name: [email or web address]
== END ==
LOC: WI 13:26
PROVIDERS: ATTEND Internal Medicine Hematology & Oncology
DX: N60.01 Solitary cyst of right breast (principal); C50.411 Malignant neoplasm of upper-outer quadrant of right female breast
CPT/HCPCS: 76642

== ENCOUNTER → 2017-11-16 | Day surgery (SDC) | payer OTHER ==
[~2017-11-16] MED LIST: LIDOCAINE 2% INJ (20 MG/ML) 20 ML MDV ONE
--- NOTE | 2017-11-22 09:22 | WOMENS IMAGING REPORT ---
EXAM DESCRIPTION: U/S BREAST BX; RIGHT DIG DX MAMMO NO CHG COMPLETED DATE/TIME: 11/16/2017 2:12 pm; 11/16/2017 2:46 pm REASON FOR STUDY: RIGHT BREAST LUMP; S/P US BX RIGHT BREAST FOR CLIP PLACEMENT N63.11 UNSPECIFIED L UMP IN THE RIGHT BREAST, UPPER OUTER DELORES COMPARISON: 11/06/2017. TECHNIQUE: The procedure was discussed with the patient and the patient agreed to proceed. The patient was scanned and the area of interest in the 10 -11 o'clock position of the right breast w as localized. This correlates with the area of concern on prior imaging studies. This area was targe bri for ultrasound-guided core biopsy. After sterile skin prep and 10 mL local lidocaine 1% for skin and deep tissue anesthesia, a 14 gauge coaxial core biopsy needle was used to obtain several cores of tissue from the lesion. Under ultraso und guidance, a ribbon clip was placed in the areas sampled. There were no immediate post-procedure complications. MAMMOGRAM: Post-procedure two view mammogram was acquired in the digital mammogram suite. The clip wa s in the expected location. No significant hematoma. Pathology yields a diagnosis of fat necrosis. Pathology is concordant. LIMITATIONS: None. FINDINGS: Ultrasound guided breast biopsy as described above. POST PROCEDURE MAMMOGRAMS FOR MARKER PLACEMENT: Yes IMPRESSION: ULTRASOUND-GUIDED CORE BIOPSY OF THE RIGHT BREAST YIELDS A DIAGNOSIS OF FAT NECROSIS. COMMENT: COMMUNICATION: The patient was personally notified of the findings by the radiologist. Patient medication list reviewed: Yes- Quality ID# [id number]:Eligible professional attests to documenting i n the medical record they obtained, updated, or reviewed the patient's current medications. TECHNICAL DOCUMENTATION: JOB ID: [id number] [employer]- All Rights Reserved Reading location - IP/workstation name: [email or web address]
--- NOTE | 2017-11-22 09:22 | WOMENS IMAGING REPORT ---
EXAM DESCRIPTION: U/S BREAST BX; RIGHT DIG DX MAMMO NO CHG COMPLETED DATE/TIME: 11/16/2017 2:12 pm; 11/16/2017 2:46 pm REASON FOR STUDY: RIGHT BREAST LUMP; S/P US BX RIGHT BREAST FOR CLIP PLACEMENT N63.11 UNSPECIFIED L UMP IN THE RIGHT BREAST, UPPER OUTER DELORES COMPARISON: 11/06/2017. TECHNIQUE: The procedure was discussed with the patient and the patient agreed to proceed. The patient was scanned and the area of interest in the 10 -11 o'clock position of the right breast w as localized. This correlates with the area of concern on prior imaging studies. This area was targe bri for ultrasound-guided core biopsy. After sterile skin prep and 10 mL local lidocaine 1% for skin and deep tissue anesthesia, a 14 gauge coaxial core biopsy needle was used to obtain several cores of tissue from the lesion. Under ultraso und guidance, a ribbon clip was placed in the areas sampled. There were no immediate post-procedure complications. MAMMOGRAM: Post-procedure two view mammogram was acquired in the digital mammogram suite. The clip wa s in the expected location. No significant hematoma. Pathology yields a diagnosis of fat necrosis. Pathology is concordant. LIMITATIONS: None. FINDINGS: Ultrasound guided breast biopsy as described above. POST PROCEDURE MAMMOGRAMS FOR MARKER PLACEMENT: Yes IMPRESSION: ULTRASOUND-GUIDED CORE BIOPSY OF THE RIGHT BREAST YIELDS A DIAGNOSIS OF FAT NECROSIS. COMMENT: COMMUNICATION: The patient was personally notified of the findings by the radiologist. Patient medication list reviewed: Yes- Quality ID# [id number]:Eligible professional attests to documenting i n the medical record they obtained, updated, or reviewed the patient's current medications. TECHNICAL DOCUMENTATION: JOB ID: [id number] [employer]- All Rights Reserved Reading location - IP/workstation name: [email or web address]
== END ==
LOC: WI 12:20
PROVIDERS: ATTEND Internal Medicine Hematology & Oncology
PROC: 0HBT3ZX Excision of Right Breast, Percutaneous Approach, Diagnostic (ICD-10-PCS; principal; 2017-11-16)
DX: N64.1 Fat necrosis of breast (principal); N63.11 Unspecified lump in the right breast, upper outer quadrant
CPT/HCPCS: 88342 ×2; 88305 ×2; 19083; J3490

== ENCOUNTER → 2018-02-06 | Outpatient (CLI) | payer OTHER ==
--- NOTE | 2018-02-06 15:18 | WOMENS IMAGING REPORT ---
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 Selected color Doppler images recorded. LIMITATIONS: None. FINDINGS: No worrisome solid masses are identified. Several small oil cysts are present less than 5 mm in size. 1.5 x 0.7 cm area of fat necrosis likely the area of concern biopsy 11/16/2017. IMPRESSION: No suspicious findings detected by ultrasound. BIRAD: 2 Benign findings. RECOMMENDATION: RECOMMENDED FOLLOW-UP: Follow-up as clinically indicated. COMMENT: [employer] (ACR) has developed recommendations for screening MRI of the breasts in certain patient populations, to be used in conjunction with mammography. Breast MRI s urveillance may be appropriate for women with more than 20% lifetime risk of developing breast cancer as determined by genetic testing, significant family history of the disease, or history of mantle r adiation for Hodgkins Disease. ACR Practice Guidelines 2008. TECHNICAL DOCUMENTATION: JOB ID: [id number] [employer]- All Rights Reserved Reading location - IP/workstation name: [email or web address]
== END ==
LOC: WI 09:49
PROVIDERS: ATTEND Internal Medicine Hematology & Oncology
DX: N60.01 Solitary cyst of right breast (principal); Z85.3 Personal history of malignant neoplasm of breast
CPT/HCPCS: 76642

== ENCOUNTER 2018-08-16 12:34 | Emergency (ER) | payer OTHER ==
[2018-08-16] MEDS ORDERED: COLCHICINE 0.6 MG TABLET PO ONE ×2 (13:13→14:48)
[2018-08-16] MEDS ORDERED: KETOROLAC TROMETHAMINE 60 MG/2 ML SDV IM ONE (13:13)
--- NOTE | 2018-08-16 13:17 | ER Document Report ---
HPI - HPI Patient complains to provider of: Right wrist tenderness Time Seen by Provider: 08/16/18 13:02 Onset: Last week Onset/Duration: Gradual Quality of pain: Achy Pain Level: 5 Context: Patient presents complaining of right wrist tenderness and swelling. Patient states she had pain for the past week and swelling for the past 3 days although it did improve after taking ibuprofen. Patient denies any trauma to the wrist. Patient is right-hand dominant. Patient denies any fever. Patient [facility] who advised her to come here for x-rays. Associated Symptoms: Other - Right wrist tenderness. denies: Fever Exacerbated by: Movement Relieved by: Remaining still Similar symptoms previously: No Recently seen / treated by doctor: Yes - ROS ROS below otherwise negative: Yes Systems Reviewed and Negative: Yes All other systems reviewed and negative - CONSTITUTIONAL Constitutional: DENIES: Fever - NEURO Neurology: DENIES: Weakness - GASTROINTESTINAL Gastrointestinal: DENIES: Nausea - MUSCULOSKELETAL Musculoskeletal: REPORTS: Extremity pain, Swelling - DERM Skin Color: Normal Skin Problems: None Past Medical History - General Information source: Patient - Social History Smoking Status: Current Every Day Smoker Smoking Education Provided: Yes Frequency of alcohol use: Occasional Drug Abuse: None Occupation: None Family History: Reviewed & Not Pertinent - Past Medical History Cardiac Medical History: Reports: Hx Hypertension Pulmonary Medical History: Reports: Hx COPD Renal/ Medical History: Denies: Hx Peritoneal Dialysis Malignancy Medical History: Reports: Hx Breast Cancer - Successful surgery GI Medical History: Reports: Hx Gastroesophageal Reflux Disease Psychiatric Medical History: Reports: Hx Depression, Hx Post Traumatic Stress Disorder Past Surgical History: Reports: Hx Breast Surgery, Hx Cholecystectomy, Hx Gynecologic Surgery, Hx Hysterectomy, Hx Mastectomy - Bilateral, Hx Orthopedic Surgery, Hx Tonsillectomy - Immunizations Hx Diphtheria, Pertussis, Tetanus Vaccination: Yes Vertical Provider Document - CONSTITUTIONAL Agree With Documented VS: Yes Exam Limitations: No Limitations General Appearance: WD/WN, No Apparent Distress - INFECTION CONTROL TRAVEL OUTSIDE OF THE [place] IN LAST 30 DAYS: No - HEENT HEENT: Atraumatic, Normocephalic - NECK Neck: Normal Inspection - RESPIRATORY Respiratory: No Respiratory Distress - CARDIOVASCULAR Pulses: Normal: Radial - MUSCULOSKELETAL/EXTREMETIES Musculoskeletal/Extremeties: MAEW, FROM, Tender - Right wrist tenderness, Edema Notes: Patient with full range of motion, normal pressure overlying joint, faint erythema over ulnar aspect of wrist - NEURO Level of Consciousness: Awake, Alert, Appropriate Motor/Sensory: No Motor Deficit, No Sensory Deficit - DERM Integumentary: Warm, Dry Course - Re-evaluation Re-evalutation: 08/16/18 13:17 Patient states she was seen [facility] and advised to come here for x-ray imaging. Patient denies any traumatic injury. Will x-ray given patient's history of breast cancer in the past. 08/16/18 14:47 Patient denies any improvement of her pain symptoms at this time. Patient does feel that immobilization will help her pain symptoms. Suspect patient has likely inflammatory process going on at this time. Will encourage outpatient follow-up with orthopedics with good return precautions. - Vital Signs Vital signs: Temp Pulse Resp BP Pulse Ox 98.0 F 82 16 119/61 98 08/16/18 12:52 08/16/18 12:52 08/16/18 12:52 08/16/18 12:52 08/16/18 12:52 - Diagnostic Test Radiology reviewed: Image reviewed, Reports reviewed Procedures - Immobilization Right Wrist Pre-Proc Neuro Vasc Exam: Normal Immobilizer type: Cock-up Performed by: PCT Post-Proc Neuro Vasc Exam: Normal Alignment checked and good: Yes Discharge - Discharge Clinical Impression: Right wrist pain Condition: Stable Disposition: HOME, SELF-CARE Instructions: Anti-Inflammatory Medication ([facility]), Arthralgia ([facility]) Additional Instructions: Return immediately for any new or worsening symptoms Followup with your primary care provider, call tomorrow to make a followup appointment Follow-up with orthopedics for further evaluation, call today or Sunday for an appointment Prescriptions: Indomethacin [Indocin 25 Mg Capsule] 25 mg PO TID PRN #15 capsule PRN Reason: Oxycodone HCl/Acetaminophen [Percocet 5-325 mg Tablet] 1 tab PO ASDIR PRN #12 tablet PRN Reason: Forms: Smoking Cessation Education Referrals: [facility] [Provider Group] - Follow up as needed
--- NOTE | 2018-08-16 14:15 | RADIOLOGY REPORT (SQ) ---
EXAM DESCRIPTION: WRIST RIGHT 3 VIEWS COMPLETED DATE/TIME: 08/16/2018 1:31 pm REASON FOR STUDY: r wrist pain COMPARISON: None. NUMBER OF VIEWS: Three views. TECHNIQUE: AP, lateral, and oblique radiographic images acquired of the right wrist. LIMITATIONS: None. FINDINGS: MINERALIZATION: Normal. BONES: No acute fracture or dislocation. No worrisome bone lesions. Normal alignment. No significant osteophytes. JOINTS: No erosions. No ángel-articular osteopenia. No chondrocalcinosis. SOFT TISSUES: No swelling. No calcifications. OTHER: No other significant finding. IMPRESSION: NEGATIVE STUDY OF THE RIGHT WRIST. NO EXPLANATION FOR PAIN. TECHNICAL DOCUMENTATION: JOB ID: [id number] [employer]- All Rights Reserved Reading location - IP/workstation name: [email or web address]
[2018-08-16 15:02] VITALS: BP 115/62
== END 2018-08-16 15:01 | disposition home or self-care (01) ==
LOC: ER 12:34
DX: M25.531 Pain in right wrist (principal); L53.9 Erythematous condition, unspecified; F17.200 Nicotine dependence, unspecified, uncomplicated; I10 Essential (primary) hypertension; J44.9 Chronic obstructive pulmonary disease, unspecified; Z85.3 Personal history of malignant neoplasm of breast
CPT/HCPCS: 99283; 96372; 73110; L3908; J1885